=== PATIENT | male | born 2005 | race Caucasian/White ===

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

== ENCOUNTER 2025-07-26 16:05 | Inpatient (IN) | payer OTHER, SELFPAY ==
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
--- OUTSIDE RECORDS SUMMARY | 2025-07-26 15:48 | XMS_ITS | Encounter Summary ---
Author Organization [facility] Address [address] [place] [phone] Phone Care Team Providers Care Fitting Room Maintenance Mechanic Name Role Phone Neeta Hong DO Primary Care Provider [phone] Reason for Visit * Reason Comments ED Admission Encounter Details Date Type Department Care Team (Late st Contact Info) Description 07/26/2025 3:48 PM EST - Present Emergency [facility] - Patient Ping Social History Tobacco Use Types Packs/Day Years Used Date Smoking Tobacco: Never Smokeless Tobacco: Never Comments:tried JUUL once Alcohol Use Standard Drinks/Week Comments Never 0 (1 standard drink = 0.6 oz pur e alcohol) Hunger/Food Answer Date Recorded In the last 12 months, did y ou or your family ever eat less than you felt you should because there wasn't enough money for food? No 02/23/2025 Stable Housing Answer Date Recorded Are you worried that in the next 2 months you may not have stable housing? No 02/23/2025 Transportation Concerns Answer Date Rec orded In the last 12 months, have you or your family ever had to go without healthcare because you didn't have a way to get there? No 02/23/2025 Hazards in Home Answer Date Recorded Think about the place you li ve. Do you have problems with any of the following? Pests (mice or roaches), mold, no/not working smoke detectors, water leaks, no window guards. No 2024 Financing Utilities Answer Date Recorde d In the last 12 months, has t he electric, gas, oil, or water company threatened to shut off your services in your home? No 02/23/2025 Safety at Home Answer Date Recorded Are you or your family worried about feeling saf e in your home? No 02/23/2025 Outside Support Answer Date Recorded Do you feel that you need mo re support from other people or programs to help you care for yourself or your family? No 02/23/2025 Understanding Health Concerns Answer Da te Recorded Do you need help understandi ng your or your child's healthcare needs (diagnosis, medications, plan, etc.)? No 02/23/2025 Financing Health Concerns Answer Date R ecorded In the last 12 months, was t here a time when your child needed to see a doctor or get medications or supplies but could not because of cost? No 02/23/2025 Missing School or Work Answer Date Laci rded Did you or your child miss s chool or work because of a health problem that could have been avoided? No 02/23/2025 Child Education Answer Date Recorded Do you have concerns about y our/your child's learning or behavior in school, preschool, or daycare? No 02/23/2025 Sex and Gender Information Value Date Recorded Sex Assigned at Not on file Legal Sex Male 5:20 PM EDT Gender Identity Not on file Sexual Orientation Straight 02/04/2022 5: 45 PM EDT documented as of this encounter Plan of Treatment Not on file documented as of this encounter Visit Diagnoses Not on filedocumented in this encounter Care Teams Fitting Room Maintenance Mechanic Relationship Specialty Start Date End Date Neeta Hong DO [address] [facility] [place] [address] PCP - General 04/04/17 documented as of this encounter
[2025-07-26 16:12] VITALS: BP 148/102; PULSE 99; O2SAT 99; BMI 25.8
[2025-07-26 16:21] VITALS: BP 133/75; PULSE 101; RESP 18; TEMP 36.6; O2SAT 98
[2025-07-26 16:48] LABS: MANUAL DIFF FLAG NO
[2025-07-26 16:49] LABS: Hematocrit 48.4 % (42.0-52.0); Hemoglobin 16.4 g/dl (14.0-18.0); Imm Gran Abs Auto 0.06 X10*3/uL (0.00-0.03); Imm Gran Pct Auto 0.5 % (0.0-0.4); Lymphocytes Absolute Auto 1.2 X10*3/uL (1.2-4.9); Mean Corpuscular HGB Conc 33.9 g/dl (31.0-36.0); Mean Corpuscular Hemoglobin 27.9 pg (27.0-33.0); Mean Corpuscular Volume 82.5 fL (80.0-98.0); NRBC Abs Auto 0.000 X10*3/uL (0.0-0.012); NRBC Pct Auto 0.0 /100WBC (0.0-0.2); Platelet Count 291 X10*3/uL (160-400); Red Blood Count 5.87 X10*6/uL (4.60-5.80); White Blood Count 11.0 X10*3/uL (4.8-10.8)
[2025-07-26 16:51] LABS: Appearance Urine Turbid; Glucose Urine UA Negative (Negative); PH 7.0 (5.0-9.0); Specific Gravity - Urine 1.025 (1.005-1.025)
--- NOTE | 2025-07-26 17:00 | ED_ITS ---
HPI - Psych General Chief Complaint: Psychiatric Symptoms Stated Complaint: SI no plan hx of depression & self harm Time Seen by Provider: 07/26/25 16:09 Source: patient and police Mode of arrival: ambulatory Limitations: no limitations History of Present Illness ED Provider: DR. Win HPI Narrative: 19-year-old male brought in by EMS and the police under section 12 for further evaluation of attempt to self-harm by punching the wall with his right hand after had an argument with his significant other, patient made a suicidal statement during the argument I want to kill myself complaining of right hand pain, patient also Bang his head in the wall, no headache, no blurry vision, no neck pain. Patient feels suicidal with no plan, no visual or auditory hallucination. Related Data Home Medications ?Medication ?Instructions ?Recorded ?Confirmed albuterol sulfate 90 mcg/actuation 2 puff inhalation Q 4-6H 07/26/25 07/26/25 aerosol inhaler (Ventolin HFA) Allergies Allergy/AdvReac Type Severity Reaction Status Date / Time No Known Allergies Allergy Verified 07/26/25 16:15 Review of Systems 2 Review of Systems: All other systems are reviewed and are negative Constitutional: Reports as per HPI and Reports no additional constitutional complaints Eyes: Reports as per HPI and Reports no additional eye complaints Reports system reviewed and no additional complaints, except as documented Cardiovascular: Reports as per HPI and Reports no additional cardiovascular complaints Respiratory: Reports as per HPI and Reports no additional respiratory complaints Gastrointestinal: Reports as per HPI and Reports no additional gastrointestinal complaints Genitourinary: Reports no additional female genitourinary complaints Musculoskeletal: Reports no additional musculoskeletal complaints Skin/Breast: Reports system reviewed and no additional complaints, except as docu Psychiatric: Reports no additional psychiatric complaints Endocrine: Reports no additional endocrine complaints Hematologic/Lymphatic: Reports no additional hematologic/lymphatic complaints Allergic/Immunologic: Reports no additional allergic/immunologic complaints Reports system reviewed and no additional complaints, except as documented and Reports Abnormal speech present [facility] Social History Social History Advance Directives: No Advance Directives Information Provided: No Do you have a plan to hurt others: No Plan Physical Exam 2 Vital Signs: Vital Signs: Last Vital Signs Temp 97.8 F 07/26/25 16:21 Pulse 101 H 07/26/25 16:21 Resp 18 07/26/25 16:21 BP 133/75 07/26/25 16:21 Pulse Ox 98 07/26/25 16:21 O2 Del Method Room Air 07/26/25 16:21 BMI result Body Mass Index 25.8 Vital signs have been reviewed and appear to be correct. Blood pressure elevated. Heart rate normal. Respiratory rate normal. Temperature normal. Oxygen saturation normal. Appearance: Alert. Oriented X3. No acute distress. Head: Normal external exam. Normocephalic. Atraumatic. No Story signs noted. No raccoon eyes noted Eyes: PERRLA. EOMI. Conjunctiva and sclera normal. Eyelids normal. ENT: TM's Normal. Pharynx normal. Uvula midline. Moist mucous membranes. No trismus noted. No drooling noted. No muffled voice noted. Neck: Normal inspection. Neck supple. FROM. No adenopathy. Thyroid Normal. No meningeal signs. No neck mass noted. CVS: Normal heart rate and rhythm. Heart sound normal. No murmurs noted. Pulses normal throughout. Respiratory: No respiratory distress. Painless inspiration. Breath sounds normal. No wheezes/rales/rhonchi noted. Chest nontender. No accessory muscle usage noted or decreased air movement noted. Abdomen: Soft and nontender. Bowel sounds normal in all 4 quadrants. No distention noted. No organomegaly noted. No visible injury noted. Back: No CVA tenderness. Full range of motion noted. Skin: Skin warm and dry. Normal skin color. Normal skin turgor. No rashes/lesions/lacerations noted. Extremities: No lower extremity edema. Extremities exhibit normal range of motion. Extremities nontender. Neuro: Oriented X 3. Cranial nerve exam: II-XII are grossly intact No motor deficit. No sensory deficit. Reflexes normal. Course Reevaluation(s) Reevaluation #1: medically cleared, await for care team evaluation, continue with section 12, will start physician observation. DR. Win's 19;00: Care team input is appreciated patient will be inpatient bed search, continue with section 12 and physician observation. Time: 18:22 Medical Decision Making Differential Diagnosis Differential Diagnoses: The differential diagnosis associated with the presentation includes ( Medical clearance, acute psychosis, acute depression, SI) Admission/Observation Consideration of admission/observation: Escalation of care including admission/observation considered Lab Data MDM Lab Attestation statement: I reviewed the patient's lab results. 07/26/25 16:41 07/26/25 16:41 Labs: Lab Results 07/26/25 Range/Units 16:41 WBC 11.0 H (4.8-10.8) X10*3/uL RBC 5.87 H (4.60-5.80) X10*6/uL Hgb 16.4 (14.0-18.0) g/dl Hct 48.4 (42.0-52.0) % MCV 82.5 (80.0-98.0) fL MCH 27.9 (27.0-33.0) pg MCHC 33.9 (31.0-36.0) g/dl RDW 12.6 (11.0-16.0) % Plt Count 291 (160-400) X10*3/uL MPV 10.5 (9.4-12.4) fL Immature Gran % (Auto) 0.5 H (0.0-0.4) % Neut % (Auto) 80.6 H (45-73) % Lymph % (Auto) 11.2 L (20-40) % Faulkner % (Auto) 6.5 (2-11) % Eos % (Auto) 0.5 (0-4) % Baso % (Auto) 0.7 (0-2) % Lymph # (Auto) 1.2 (1.2-4.9) X10*3/uL [place]ner # (Auto) 0.7 (0.1-1.2) X10*3/uL Eos # (Auto) 0.1 (0.0-0.4) X10*3/uL Baso # (Auto) 0.1 (0.0-0.2) X10*3/uL Abs Immat Gran (auto) 0.06 H (0.00-0.03) X10*3/uL Absolute Neuts (auto) 8.9 H (2.0-8.3) x10*3/uL Absolute Nucleated RBC 0.000 (0.0-0.012) X10*3/uL Nucleated RBC % (auto) 0.0 (0.0-0.2) /100WBC Sodium 143 (135-145) mmol/L Potassium 4.1 (3.3-5.1) mmol/L Chloride 106 (96-108) mmol/L Carbon Dioxide 27 (22-29) mmol/L Anion Gap 14 (12-20) BUN 15 (9-16) mg/dL Creatinine 1.18 (0.5-1.4) mg/dL Estim Creat Clear Calc 103.9 Estimated GFR > 60 Random Glucose 97 (60-115) mg/dL Calcium 10.6 H (8.4-10.2) mg/dL Total Bilirubin 0.6 (0.0-1.0) mg/dL AST 21 (5-37) U/L ALT 23 (0-40) U/L Alkaline Phosphatase 85 (39-117) U/L Total Protein 8.0 (6.5-8.0) g/dL Albumin 5.5 H (3.5-5.0) g/dL Urine Color Yellow Urine Appearance Turbid Urine pH 7.0 (5.0-9.0) Ur Specific [place] 1.025 (1.005-1.025) Urine Protein Trace (Neg-Trace) mg/dL Urine Glucose (UA) Negative (Negative) mg/dL Urine Ketones 80 (Negative) mg/dL Urine Blood Negative (Negative) Urine Nitrite Negative (Negative) Ur Leukocyte Esterase Negative (Negative) Urine RBC 0-2 (0-2) /HPF Urine WBC 0-5 (0-5) /HPF Ur Squamous Epith Cells 0-2 (0-2) /HPF Urine Bacteria None Seen (None Seen) Hyaline Casts 6-10 (0-2) /LPF Urine Opiates Screen Not Detected (Not Detect) Ur Buprenorphine Scrn Not Detected (Not Detect) ng/mL Ur Oxycodone Screen Not Detected (Not Detect) ng/mL Urine Methadone Screen Not Detected (Not Detect) ng/mL Urine Fentanyl Screen Not Detected (Not Detect) Ur Barbiturates Screen Not Detected (Not Detect) Ur Phencyclidine Scrn Not Detected (Not Detect) Ur Amphetamines Screen Not Detected (Not Detect) U Benzodiazepines Scrn Not Detected (Not Detect) Urine Cocaine Screen Not Detected (Not Detect) U Marijuana (THC) Screen POSITIVE H (Not Detect) Ethyl Alcohol < 10 mg/dL Independent Interpretation I performed an independent interpretation of an: Plain X-Ray ( right hand;. No radiographic evidence of acute injury to the right hand. 2. Chronic healed fracture deformity of the 5th metacarpal.) Radiology Impression Discussion of test interpretation with radiology: I have reviewed the radiologist's reading. Discharge Plan Discharge Clinical Impression: Depression Prescriptions: No Action albuterol sulfate [Ventolin HFA] 90 mcg/actuation HFA aerosol inhaler 2 puff inhalation Q4-6H Interventions: [place]-Suicide Risk Severity Scale Last Done: 07/26/25 16:17 Print Language: Tajik
[2025-07-26 17:03] LABS: Alanine Aminotransferase 23 U/L (0-40); Albumin Level 5.5 g/dL (3.5-5.0); Alkaline Phosphatase 85 U/L (39-117); Anion Gap 14 (12-20); Aspartate Amino Transferase 21 U/L (5-37); Blood Urea Nitrogen 15 mg/dL (9-16); Calcium 10.6 mg/dL (8.4-10.2); Carbon Dioxide 27 mmol/L (22-29); Chloride 106 mmol/L (96-108); Creatinine Clr Calc Pharmacy 103.9; Estimated Glomerular Filt Rate > 60; Potassium 4.1 mmol/L (3.3-5.1); Sodium 143 mmol/L (135-145); Total Protein 8.0 g/dL (6.5-8.0)
[2025-07-26 17:04] LABS: Cannabinoid Screen Urine POSITIVE (Not Detect)
--- OUTSIDE RECORDS SUMMARY | 2025-07-26 17:24 | XMS_ITS | Encounter Summary ---
Author Organization [facility] Address [address] [place] [phone] Phone Care Team Providers Care Slip Bridge Operator Name Role Phone Neeta Hong DO Primary Care Provider [phone] Encounter Details Date Type Department Care Team (Late st Contact Info) Description 04/10/2017 Conversion Encounter [facility] [place] [address] [place] [address] Social History Tobacco Use Types Packs/Day Years Used Date Smoking Tobacco: Never Assessed Sex and Gender Information Value Date Recorded Sex Assigned at Not on file Legal Sex Male 5:20 PM EDT Gender Identity Not on file Sexual Orientation Straight 02/04/2022 5: 45 PM EDT documented as of this encounter Plan of Treatment Not on file documented as of this encounter Visit Diagnoses Not on filedocumented in this encounter Care Teams Slip Bridge Operator Relationship Specialty Start Date End Date Neeta Hong DO [address] [place] [address] PCP - General 04/04/17 documented as of this encounter
--- OUTSIDE RECORDS SUMMARY | 2025-07-26 17:24 | XMS_ITS | Clinical Summary ---
Author Organization [facility] Address [address] [place] [phone] Phone Care Team Providers Care Comber Operator Name Role Phone HalRamonasari SALAS Primary Care Provider [phone] Allergies Active Allergy Reactions Criticality Noted Date Comments Amoxicillin Cat Dander Medications Respiratory Therapy Supplies (NEBULIZER/TUBIN G/MOUTHPIECE) kitIndications:M oderate persistent asthma without complication Use as directed for delivery of asthma meds. 1 each 8 Active albuterol (2.5 MG/3ML) 0.083% nebulizer solutionIndicati ons:Moderate persistent asthma with acute exacerbation Take 3 mL (2.5 mg total) by nebulization every 4 (four) hours as needed for wheezing or shortness of breath. Dispense one package 75 mL 2 Active FLUoxetine 40 MG capsule 3 Active cloNIDine 0.1 MG tablet TAKE 1 TABLET BY MOUTH EVERY NIGHT AND ONE ADDITIONAL TABLET NEEDED FOR THE DAY FOR ANXIETY 3 Active QUEtiapine XR 400 MG 24 hr tablet 4 Active montelukast 10 MG tabletIndication s:Mild persistent asthma with acute exacerbation Take 1 tablet (10 mg total) by mouth nightly. 90 tablet 3 4 Active Spacer/Aero-Hold ing Chambers (OptiChamber Reshma) miscIndications: Mild persistent asthma without complication Use with inhaler 1 each 4 Active Ventolin HFA 108 (90 Base) MCG/ACT inhalerIndicatio ns:Mild persistent asthma with acute exacerbation Inhale 2 puffs every 4 (four) hours as needed for wheezing. for wheezing 1 Units 5 Active fluticasone 50 MCG/ACT nasal spray SPRAY 2 SPRAYS IN EACH NOSTRIL DAILY 5 Active predniSONE 10 MG tablet 5 Active Fluticasone-Salm eterol (Wixela Inhub) 250-50 MCG/ACT aerosol powderIndication s:Mild persistent asthma with acute exacerbation Inhale 1 puff 2 (two) times a day. Rinse mouth with water after use, do not swallow. 1 each 11 5 Active Active Problems Problem Noted Date Diagnosed Date Mood disorder 12/27/2019 Overview (01/26/2024): meds managed by Harvinder Navarro APRN Has therapist- HARVINDER Navarro Assessment & Plan (02/23/2025 11:25 AM EDT): Meds and counseling managed by Harvinder Fernandes for routine screening labs Assessment & Plan (01/26/2024 11:34 AM EDT): Meds and counseling managed by Harvinder Navarro Assessment & Plan (01/15/2023 10:12 AM EDT): Meds managed by ZA Pete dose recently increased Psych med provider would like him to have psych testing-mom is trying to get on a list at [facility]; uncertain if [facility] will take him as a patient-I am referring him to GI so perhaps this will help Assessment & Plan (12/30/2022 9:15 AM EDT): meds managed by Harvinder Navarro On Prozac Assessment & Plan (02/04/2022 5:46 PM EDT): Seeing psych for meds Just started sertraline On buspar too Assessment & Plan (01/30/2021 9:31 AM EDT): Missed quite a few days of school sec to anxiety Seeing Harvinder Navarro for meds On celexa now Takes clonidine prn Assessment & Plan (11/28/2020 9:18 AM EDT): I agree w/ teen and mom that his physical signs and symptoms are most likely related to his anxiety- which worsened recently when he abruptly DCed his fluoxetine for a week(he did this because he was feeling better and thought he didn't need med anymore) Stressed not to DC meds w/o discussing w/ Rx'ing provider first and jovan SSRIs should not be abruptly DCed He was having good response to fluoxetine so hopefully this will cont now that he is back on med again He has med FU w/ Jodi Khan soon LUIZ screen 15- His anxiety is quite significant so I encouraged him to engage in regular therapy sessions w/ therapist @ [facility]- instead of just a check-in Assessment & Plan (12/28/2019 2:29 PM EDT): Pos BH screens today though no concerns per pt We discussed how the pandemic has affected his life- no more sports, not able to visit dad who lives in [place], unsure of what the summer will bring Has reg therapist but since COVID pandemic lockdown, only getting a phone check- in once a month Encouraged to get back in touch with therapist as I do not think a brief phone check-in is enough to support pt's needs He does not like change- does not want to see another therapist and is somewhat negative about seeing his current therapist more often Mom will let me know if she needs more help Spermatocele 05/28/2019 Overview (05/28/2019): On US 2019 Or epidyd head cyst No intervention unless recurr pain Assessment & Plan (12/30/2022 10:25 AM EDT): No symptoms Assessment & Plan (01/30/2021 9:33 AM EDT): asymptomatic Assessment & Plan (12/28/2019 2:30 PM EDT): No current issues Assessment & Plan (06/02/2019 11:45 AM EDT): We discussed again today- not having any pain; was thinking he wanted it removed; we talks about risks v. Benefits of surgery in this case; because he is having no pain, will monitor for now; I am happy to send him to pedi surg in future if this changes. Moderate persistent asthma without complication 12/22/2015 Overview (12/30/2022): wixela 250: 1p twice a day in singulair restart Was off advair/wixela 250: 1p BID and off singulair since [address] 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 Explained why this is dangerous when not also on steroids. Decadron here today To start pred 50 mg 1x daily x 3 tomorrow afternoon To restart Wixela and singulair (unclear if this will happen) Will refer back to Dr Coleman and mom's request. To follow up prn persistent or recurrent symptoms No wheezing appreciated today (pt says he took albuterol just prior to being seen) O2 sat 96% here. Assessment & Plan (05/21/2023 1:15 PM EDT): Post flare and 5d pred course- much better Discussed ?switch to SMART therapy/symbicort single MDI protocol for maint and rescue He does not want to switch now- wants to stay w/ his current wixela and singulair Due for PE in Assessment & Plan (05/16/2023 10:38 AM EDT): Here for routine asthma check but has acute asthma flare today Using albuterol freq for the past week to 10d Pred course 50mg daily x 5d- recheck next week to see if he will need a taper Again reviewed compliance w/ wixela-twice a day dosing not once a day dosing Also he has not been taking Singulair so we reviewed this as well Consider switch to Symbicort protocol at some point Assessment & Plan (12/30/2022 10:26 AM EDT): Compliant w/ wixela and singulair Assessment & Plan (09/23/2022 9:36 AM EST): S/p asthma flare req pred course 2w ago in setting of RSV All better now freq asthma flares this winter so will restart singulair Cont wixela 250: 1p twice a day Recheck @ PE due in December If he has another flare req pred course- will refer back to Pulm([facility] this time) Assessment & Plan (07/26/2022 7:07 PM EST): Teen came alone today- called mom to go over care Lungs are clear and no fever, is well-appearing Pos RSV test a week ago On cefdinir day 03/03 for AOM- looks better today S/p pred 5d course He feels 70% better- I think still recovering from RSV Do not think further testing or extended pred course needed Stressed cont his daily wixela MDI Advised cool mist humidifier in bedroom and make sure to keep hydrated before bedtime Assessment & Plan (02/04/2022 4:01 PM EDT): Compliant w/ wixela Assessment & Plan (11/01/2021 10:02 AM EST): Reviewed ED note Unfortunately- they did not get the instructions for pred taper and teen skipped the 5d burst and went right to the taper dosinmg, 40mg, 30mg, 20mg He is currently on 20mg pred daily- advised this taper: 20mg daily for 2d 10mg daily for 2d Re-start wixela 250/1p twice a day Long discussion about compliance Again offered HAP through PPOC- teen refused Has PE coming up in JUAN PABLO Consider return to Dr. Coleman and/or re-starting singulair depending on how he does Assessment & Plan (07/23/2021 5:38 PM EST): ACT 20- good RFed prn proair- should last him 3mo- if not, would be concerned asthma is not under good control FU @ PE in JAN22 Assessment & Plan (01/29/2021 11:37 AM EDT): Not taking wixela for a year now Using last albuterol infreq Assessment & Plan (12/28/2019 2:29 PM EDT): Doing better with daily ICS Still declines PPOC HAP Encouraged to keep up the good work Assessment & Plan (09/13/2019 5:53 PM EST): Again we had a long discussion about his Advair(Wixela) and why he needs it Discussed ways to remember taking it Wanted to refer him to PPOC HAP- but he is refusing and promised to re-start his daily Advair Has PE in 3mo Assessment & Plan (12/01/2018 8:51 AM EDT): he self DCed advair and singulair sometime in [id number]. Mom reports has issues with adherence. Occasionally uses proair. Had no problems with sports and had a few colds and did not need much albuterol rescue. Assessment & Plan (11/27/2017 7:16 AM EDT): Dr. Coleman recently inc his advair to the 250 and added singulair; he would be a good match for the home asthma program- d/w mom- she declined for now but will consider it Resolved Problems Problem Noted Date Diagnosed Date Resolved Date Hx of tonsillectomy 01/26/2024 01/26/20 24 Abnormal thyroid blood test 05/16/2023 02/23/2025 Overview (08/05/2023): Had low TSH, recheck better Neg TSI, TPO Mom has hypothy- req endo consult 2022- Endo felt repeat TFTs were normal; no FU needed Assessment & Plan (05/16/2023 10:26 AM EDT): Had low TSH, recheck better Neg TSI, TPO Mom has hypothy- req endo referral Nausea and vomiting 01/15/2023 02/24/20 25 Overview (01/26/2024): Seeing [facility]-plan JUL 17: Suspect anxiety related IBS Fecal calprotectin Trial famotidine Follow-up in 3 months-consider EGD if not better Assessment & Plan (01/26/2024 11:34 AM EDT): Reviewed GI visit last Fall- he is better and does not feel the need to return to see GI Trial pepcid did help Assessment & Plan (01/15/2023 10:11 AM EDT): Recurrent nausea vomiting along with some diarrhea Suspect multifactorial etiology-Yana is insightful in telling me that anxiety triggers the symptoms Screening labs are reasonable at this point We will refer to GI given mom's history of colon cancer Tinea versicolor 03/22/2021 02/04/2022 Acne vulgaris 03/22/2021 01/26/2024 Overview (11/20/2022): 90d doxy course Turcios oxyl wash rec Assessment & Plan (12/30/2022 10:25 AM EDT): 4w into 12w doxy course If no better @ end of 12w- will refer to Derm Assessment & Plan (11/20/2022 5:29 PM EDT): 90d doxy course- vigilant sunscreen use reviewed Turcios oxyl wash rec Post concussive syndrome 07/19/201811/2019 Overview (07/18/2019): Images from the original note were not included. - re-consulted Sports Med: Fall 2018: Saw Dr. Aguillon. Cleared back to sports in the fall. Common wart 03/17/2018 12/27/2019 Overview (03/17/2018): Saw [facility] Anxiety 12/22/2015 11/27/2017 Gastroesophageal reflux dise ase without esophagitis 12/03/2006 11/27/2017 Umbilical hernia 12/03/2006 11/27/2017 Encounters Date Type Department Care Team Description 07/26/2025 3:48 PM EST - Present Emergency [facility] - Patient Ping 05/16/2025 Telephone [facility] - [address] [address] Verenice Montez flu vaccine from Last 3 Months Immunizations Immunization Administration Dates Next Due COVID-19 marco antonio Nicholson-theresa rowan, 12+ years 02/04/2022 DTaP 03/23/2010,05/22/2007 DTaP / Hep B / IPV 06/11/2006,03/26/2006, 006 HPV Vaccine 9 Valent 06/03/2018,11/26/2017 Hep A, ped/adol 05/22/2007,11/20/2006 Hep B, ped/adol 2005 Hib (HbOC) 05/22/2007 Hib (PRP-T) 06/11/2006,03/26/2006,01/16/2006 IPV 03/23/2010 Influenza Split 04/22/2012,06/10/2011 Influenza, injectable, quadr ivalent, preservative free 07/23/2021,06/09/2020 Influenza, injectable, trivalent 10/15/2006,01/04/2007 MMR 03/23/2010 MMRV 11/20/2006 Meningococcal Conj (Menactra) MCV4P 02/04/2022,0 11/26/2017 Pneumococcal Conjugate 03/05/2007,2005,03/26/2006,01/16 Pneumococcal Polysaccharide 02/23/2025 Tdap 11/26/2017 Varicella 05/22/2007 Family History Medical History Relation Name Comments Anxiety disorder Father Asthma Father Depression Father Asthma Mother Misti Colon cancer Mother Misti Vision loss Sister shanthi No Known Problems Step Sister 1 No Known Problems Step Sister 2 No Known Problems Step Sister 3 Relation Name Status Comments Father Alive Father: Asthma Maternal Grandfather Alive Materna l uncle: GERD Maternal Grandmother Alive Materna l grandmother: GERD Mother Misti Alive Mother: Asthma, Cancer, colon Paternal Grandfather Alive Paternal Grandmother Alive Paterna l grandmother: Anxiety Sister shanthi Alive vision impareme nt Step Sister 1 Alive Step Sister 2 Alive Step Sister 3 Alive Social History Tobacco Use Types Packs/Day Years Used Date Smoking Tobacco: Never Smokeless Tobacco: Never Tobacco Cessation:Counseling Given: Yes Comments:tried JUUL once Alcohol Use Standard Drinks/Week [...] Orientation Straight 02/04/2022 5: 45 PM EDT Last Filed Vital Signs Vital Sign Reading Time Taken Comments Blood Pressure 108/70 02/23/2025 8:46 AM EDT Pulse 84 02/23/2025 8:46 AM EDT Temperature 36.2 C (97.2 F) 02/23/2025 8:46 AM EDT Respiratory Rate 20 05/16/2023 8:40 AM EDT Oxygen Saturation 96% 07/06/2024 3:29 PM EST Inhaled Oxygen Concentration - - Weight 88.9 kg (196 lb) 02/23/2025 8:46 AM EDT Height 175.9 cm (5' 9.25 ) 02/23/2025 8:46 AM ED T Body Mass Index 28.74 02/23/2025 8:46 AM EDT Plan of Treatment Health Maintenance Due Date Last Done Comments Men B Vaccine (1 of 2 - Standard) 2021 LDL-C/Cholesterol 05/16/2023 Glucose/HbA1C 01/16/2024 01/15/2023 Influenza Vaccines (#1) 2025 07/23/20 21, 06/09/2020, 04/22/2012, Additional history exists COVID-19 Vaccine (3 - 2024-2 6 season) 2025 02/04/2022, 01/15/2022 DTaP,Tdap,and Td Vaccines (7 - Td or Tdap) 11/27/2027 11/26/2017, 03/23/2010, 05/22/2007, Additional history exists Pneumococcal Vaccine (2 of 2 - PCV20 or PCV21) 11/17/2055 02/23/2025, 03/05/2007, 06/11/2006, Additional history exists Hepatitis B Vaccines Completed 06/11/2006, 03/26/2006, 01/16/2006, Additional history exists HIB Vaccines Completed 05/22/2007, 05/25, 03/26/2006, Additional history exists Hepatitis A Vaccines Completed 05/22/2007, 11/21/19 07 Varicella Vaccines Completed 05/22/2007, 11/20/2006 IPV Vaccines Completed 03/23/2010, 05/25, 03/26/2006, Additional history exists MMR Vaccines Completed 03/23/2010, 11/20/2006 HPV Vaccines Completed 06/03/2018, 11/26/2017 Meningococcal Vaccine Completed 02/04/2022, 018 Procedures * The patient is currently admitted. The information in this section might not be complete until the patient is discharged.Due to [place] 9Flava law, this organization might not be sharing sensitive test results. Procedure Name Priority Date/Time Associated Diagnosis Comments COMPREHENSIVE METABOLIC PANEL Routine 01/15/2023 10:05 AM EDT Nausea and vomiting, unspecified vomiting type from Last 3 Months or Most Recently Relevant to Health Maintenance Results * Due to [place] 9Flava law, this organization might not be sharing sensitive test results. * (ABNORMAL) Comprehensive Metabolic Panel (01/15/2023 10:05 AM EDT) Glucose 99 (70-99) MG/DL [facility] Urea Nitrogen 15 (5-18) MG/DL [facility] Creatinine 1.0 (0.7-1.2) MG/DL [facility] Sodium 138 (133-145) MMOL/L [facility] Potassium 4.7 (3.6-5.2) MMOL/L [facility] Chloride 102 (98-107) MMOL/L [facility] HCO3, Arterial 28 (22-29) MMOL/L [facility] Anion Gap 8 (4-17) [facility] Albumin 5.0(H) (3.2-4.5) GM/DL [facility] Calcium 10.0 (8.6-10.5 ) MG/DL [facility] Bilirubin, Total 0.6 (0-1.2) MG/DL [facility] Total Protein 7.2 (6.2-8.2) GM/DL [facility] A/G Ratio 2.3 [facility] AST (SGOT) 13 (0-40) U/L [facility] Alkaline Phosphatase 84 (0-390) U/L [facility] ALT (SGPT) 10 (0-41) U/L [facility] eGFR Non- Not reported if <18 yrs ML/MIN/1. 73 M2 [facility] Comment: Testing performed or reported by [facility], a Service of [facility], [address] [place] [id number] Ubaldo Leiva MD, It Project Manager [facility]# [id number] Blood 01/15/2023 10:0 5 AM EDT 01/15/2023 10:13 AM EDT us Neeta Hong DO LAB BLOOD ORDERABLES Final Resul t [facility] from Last 3 Months or Most Recently Relevant to Health Maintenance Insurance [facility] NON PCC [facility] [place] [id number] Care Teams Comber Operator Relationship Specialty Start Date End Date Neeta Hong DO [address] [facility] [address] PCP - General 04/04/17
--- OUTSIDE RECORDS SUMMARY | 2025-07-26 17:24 | XMS_ITS | Encounter Summary ---
Author Organization [facility] Address [address] [place] [address] Phone Care Team Providers Care Forest Fire Prevention Manager Name Role Phone Neeta Hong DO Primary Care Provider [phone] Reason for Visit * Reason Onset Date Comments Med Refill 03/21/2025 Encounter Details Date Type Department Care Team (Late st Contact Info) Description 03/21/2025 Refill [facility] [place] [address] [place] [address] Neeta Hong DO [address] [place] [address] Mild persistent asthma with acute exacerbation Social History Tobacco Use Types Packs/Day Years [...] PM EDT documented as of this encounter Miscellaneous Notes * Telephone Encounter - Neeta Hong DO - 03/21/2025 5:18 PM EDT OK I agree w/ plan * Telephone Encounter - Haley Jason LPN - 03/21/2025 11:26 AM EDT Portal request refill ventolin inhaler. Hx fill for this med in 2024 is as follows. 09/03/24, 10/09/24, 01/26/25 and 02/04/25. I advised the pt to contact office if he is out as f/u with PCP may be needed. EH documented in this encounter Plan of Treatment Not on file documented as of this encounter Visit Diagnoses Diagnosis Mild persistent asthma with acute exacerbation documented in this encounter Care Teams Forest Fire Prevention Manager Relationship Specialty Start Date End Date Neeta Hong DO [address] [facility] [place] [address] PCP - General 04/04/17 documented as of this encounter
--- OUTSIDE RECORDS SUMMARY | 2025-07-26 17:24 | XMS_ITS | Clinical Summary ---
Author Organization [facility] Address [address] [address] Phone Care Team Providers Care Canal Equipment Maintenance Supervisor Name Role Phone Neeta Hong DO Primary Care Provider [phone] Allergies Active Allergy Reactions Criticality Noted Date Comments Amoxicillin Cat Hair Standardized Allergenic Extract Medications No known medications Active Problems No known active problems Social History Tobacco Use Types Packs/Day Years Used Date Smoking Tobacco: Never Smokeless Tobacco: Never Alcohol Use Standard Drinks/Week Comments No 0 (1 standard drink = 0.6 oz pur e alcohol) Education Answer Date Recorded Are you interested in more education? Not on franchesca e 12/20/2022 Are you concerned about learning? Not on file 12/20/2022 No 12/20/2022 No 12/20/2022 Digital Access Answer Date Recorded No 01/14/2023 No 01/14/2023 No 01/14/2023 Reliable internet access at home? Not on file 01/14/2023 Device with a working camera? Not on file Sex and Gender Information Value Date Recorded Sex Assigned at Not on file Legal Sex Male 4:46 PM EDT Gender Identity Not on file Sexual Orientation Not on file Last Filed Vital Signs Vital Sign Reading Time Taken Comments Blood Pressure - - Pulse - - Temperature - - Respiratory Rate - - Oxygen Saturation - - Inhaled Oxygen Concentration - - Weight 54.4 kg (120 lb) 04/13/2018 8:59 AM EDT Height 157.5 cm (5' 2 ) 04/13/2018 8:59 AM EDT Body Mass Index 21.95 04/13/2018 8:59 AM EDT Body Mass Index Percentile 88.05% 04/13/2018 8:5 9 AM EDT Growth Chart: CDC (Boys, 2-2 0 Years) Plan of Treatment Health Maintenance Due Date Last Done Comments BMI ASSESSMENT 2008 DEVELOPMENTAL/BEHAVIORAL SCREENING (PHQ, PSC, or SWYC) 2008 DEPRESSION SCREENING 2017 SMOKING Hx and SMOKELESS TOBACCO SCREENING 2018 MENINGOCOCCAL VACCINES (B) (1 of 2 - Standard) 2021 ADOLESCENT UNIVERSAL LIPID SCREENING 2022 HEPATITIS C SCREENING 11/17/2023 HIV ONE-TIME SCREENING (18-65 YEARS) 11/17/2023 INFLUENZA VACCINE (#1) 2025 , 06/09/2020, 04/22/2012, Additional history exists COVID-19 VACCINE (3 - 2024- season) 2025 02/04/2022, 01/15/2022 COMBINED DTaP,Tdap,Td (7 - Td or Tdap) 11/27/2027 11/26/2017, 03/23/2010, 05/22/2007, Additional history exists HEPATITIS B VACCINES Completed 06/11/2006, 03/26/2006, 01/16/2006, Additional history exists PNEUMOCOCCAL VACCINES (0-49 years) Aged Out 03/05/2007, 06/11/2006, 03/26/2006, Additional history exists No longer eligible based on patient's age to complete this topic HEPATITIS A VACCINES Completed 05/22/2007, 11/21/19 07 HIB VACCINES Completed 05/22/2007, 05/25, 03/26/2006, Additional history exists VARICELLA VACCINES Completed 05/22/2007, 11/20/2006 MMR VACCINES Completed 03/23/2010, 11/20/2006 HPV VACCINES Completed 06/03/2018, 11/26/2017 MENINGOCOCCAL VACCINES (ACWY) Completed 02/04/2022, 11/26/2017 Medical Devices Not on file Insurance [employer] PPO AETNA PPO AETNA PPO AETNA PPO AETNA PPO AETNA PPO AETNA PPO AETNA PPO AETNA PPO AETNA PPO AETNA PPO AETNA PPO AETNA PPO AETNA PPO AETNA PPO AETNA PPO AETNA PPO AET[employer] PPO Care Teams Canal Equipment Maintenance Supervisor Relationship Specialty Start Date End Date Neeta Hong DO [address] [facility] [place] [address] PCP - General Pediatrics 04/13/18 Additional Source Comments The information contained in this document represents components of the legal health record. It is not the complete legal health record.[facility]
--- OUTSIDE RECORDS SUMMARY | 2025-07-26 17:25 | XMS_ITS | Encounter Summary ---
Author Organization [facility] Address [address] [place] [address] Phone Care Team Providers Care Supervisor Toy Parts Former Name Role Phone Neeta Hong DO Primary Care Provider [phone] Reason for Visit * Reason Comments Med Refill Encounter Details Date Type Department Care Team ([facility] st Contact Info) Description 02/26/2021 Refill [facility] [address] [place], [place] [id number] Neeta Hong DO [address] [place] [address] Mild persistent asthma without complication Social History Tobacco Use Types Packs/Day Years [...] there wasn't enough money for food? No 01/29/2021 Stable Housing Answer Date Recorded Are you worried that in the next 2 months you may not have stable housing? No 01/29/2021 Transportation Concerns Answer Date Rec orded In the last 12 months, have you or your family ever had to go without healthcare because you didn't have a way to get there? No 01/29/2021 Hazards in Home Answer Date Recorded Think about the place you li ve. Do you have problems with any of the following? Pests (mice or roaches), mold, no/not working smoke detectors, water leaks, no window guards. No 2020 Financing Utilities Answer Date Recorde d In the last 12 months, has t he electric, gas, oil, or water company threatened to shut off your services in your home? No 01/29/2021 Safety at Home Answer Date Recorded Are you or your family worried about feeling saf e in your home? No 01/29/2021 Outside Support Answer Date Recorded Do you feel that you need mo re support from other people or programs to help you care for yourself or your family? No 01/29/2021 Understanding Health Concerns Answer Da te Recorded Do you need help understandi ng your or your child's healthcare needs (diagnosis, medications, plan, etc.)? No 01/29/2021 Financing Health Concerns Answer Date R ecorded In the last 12 months, was t here a time when your child needed to see a doctor or get medications or supplies but could not because of cost? No 01/29/2021 Missing School or Work Answer Date Laci rded Did you or your child miss s chool or work because of a health problem that could have been avoided? Yes 01/29/2021 Sex and Gender Information Value Date Recorded Sex Assigned at Not on file Legal Sex Male 5:20 PM EDT Gender Identity Not on file Sexual Orientation Straight 02/04/2022 5: 45 PM EDT documented as of this encounter Miscellaneous Notes * Telephone Encounter - Neeta Hong DO - 02/26/2021 7:07 PM EDT [facility] refused to allow E-rx or any Rx w[facility] the [facility] [place] attached to the encounter. I [facility]. * Telephone Encounter - Christi Davenport [place] - 02/26/2021 11:11 AM EDT Mom calling stating pt needs the albuterol refill. Mom states he has had a head cold. Pt is in [place] and needs it. Mom aware it was filled less than a month ago and pt is already out. Mom advised if he used the entire inhaler pt needs to seek care in [place]. When advised this mom became argumentative that we are going to withhold the inhaler for her child and he will need to go with out if he has an attach. Mom advised it will be sent to PCP for review but again if used an entire inhaler in less that one month he should really be seen to Make sure he is ok. [facility]. Mom sent to the front of house manager to book an asthma check but it is not until 03/23 documented in this encounter Plan of Treatment Not on file documented as of this encounter Visit Diagnoses Diagnosis Mild persistent asthma without complication documented in this encounter Care Teams Supervisor Toy Parts Former Relationship Specialty Start Date End Date Neeta Hong DO [address] [facility] [place] [address] PCP - General 04/04/17 documented as of this encounter
--- OUTSIDE RECORDS SUMMARY | 2025-07-26 17:25 | XMS_ITS | Encounter Summary ---
Author Organization [facility] Address [address] [place] [address] Phone Care Team Providers Care Electrical Controls Designer Name Role Phone Neeta Hong DO Primary Care Provider [phone] Reason for Visit * Reason Comments Med Refill Encounter Details Date Type Department Care Team (Late st Contact Info) Description 11/28/2017 Refill [facility] [place] [address] [place] [address] Gene Barber MD [address] [place] [address] Mild intermittent asthma without complication Social History Tobacco Use Types Packs/Day Years Used Date Smoking Tobacco: Never Smokeless Tobacco: Never Sex and Gender Information Value Date Recorded Sex Assigned at Not on file Legal Sex Male 5:20 PM EDT Gender Identity Not on file Sexual Orientation Straight 02/04/2022 5: 45 PM EDT documented as of this encounter Miscellaneous Notes * Telephone Encounter - Haley Jason LPN - 11/28/2017 3:44 PM EDT Pharm fax refill request proair. Vm left asking mom to call as this was last filled 10/28/17. EH documented in this encounter Plan of Treatment Not on file documented as of this encounter Visit Diagnoses Diagnosis Mild intermittent asthma without complication documented in this encounter Care Teams Electrical Controls Designer Relationship Specialty Start Date End Date Neeta Hong DO [address] [place] [address] PCP - General 04/04/17 documented as of this encounter
--- OUTSIDE RECORDS SUMMARY | 2025-07-26 17:25 | XMS_ITS | Encounter Summary ---
Author Organization [facility] Address [address] [place] [address] Phone Care Team Providers Care Fringing Machine Operator Name Role Phone Neeta Hong DO Primary Care Provider [phone] Encounter Details Date Type Department Care Team (Late st Contact Info) Description 09/26/2010 Documentation [facility] [address] [place] [address] Family Medicine, Physician [address], [place] [id number] Social History Tobacco Use Types Packs/Day Years [...] on filedocumented in this encounter Care Teams Fringing Machine Operator Relationship Specialty Start Date End Date Neeta Hong DO [address] [place] [address] PCP - General 04/04/17 documented as of this encounter
--- OUTSIDE RECORDS SUMMARY | 2025-07-26 17:25 | XMS_ITS | Encounter Summary ---
Author Organization [facility] Address [address] [place] [phone] Phone Care Team Providers Care Coal Cager Name Role Phone Neeta Hong DO Primary Care Provider [phone] Reason for Visit * Reason Comments Med Refill Encounter Details Date Type Department Care Team (Late st Contact Info) Description 09/21/2020 Refill [facility] [place] [address] [place] [address] Anthony Campbell MD [address] [place] [address] Mood disorder Social History Tobacco Use Types Packs/Day Years [...] there wasn't enough money for food? No 12/27/2019 Stable Housing Answer Date Recorded Are you worried that in the next 2 months you may not have stable housing? No 12/27/2019 Transportation Concerns Answer Date Rec orded In the last 12 months, have you or your family ever had to go without healthcare because you didn't have a way to get there? No 12/27/2019 Hazards in Home Answer Date Recorded Think about the place you li ve. Do you have problems with any of the following? Pests (mice or roaches), mold, no/not working smoke detectors, water leaks, no window guards. No 2019 Financing Utilities Answer Date Recorde d In the last 12 months, has t he electric, gas, oil, or water company threatened to shut off your services in your home? No 12/27/2019 Safety at Home Answer Date Recorded Are you or your family worried about feeling saf e in your home? No 12/27/2019 Outside Support Answer Date Recorded Do you feel that you need mo re support from other people or programs to help you care for yourself or your family? No 12/27/2019 Understanding Health Concerns Answer Da te Recorded Do you need help understandi ng your or your child's healthcare needs (diagnosis, medications, plan, etc.)? No 12/27/2019 Financing Health Concerns Answer Date R ecorded In the last 12 months, was t here a time when your child needed to see a doctor or get medications or supplies but could not because of cost? No 12/27/2019 Missing School or Work Answer Date Laci rded Did you or your child miss s chool or work because of a health problem that could have been avoided? No 12/27/2019 Sex and Gender Information Value Date Recorded Sex Assigned at Not on file Legal Sex Male 5:20 PM EDT Gender Identity Not on file Sexual Orientation Straight 02/04/2022 5: 45 PM EDT documented as of this encounter Plan of Treatment Not on file documented as of this encounter Visit Diagnoses Diagnosis Mood disorder Unspecified episodic mood disorder documented in this encounter Care Teams Coal Cager Relationship Specialty Start Date End Date Neeta Hong DO [address] [facility] [place] [address] PCP - General 04/04/17 documented as of this encounter
--- OUTSIDE RECORDS SUMMARY | 2025-07-26 17:25 | XMS_ITS | Encounter Summary ---
Author Organization [facility] Address [address] [place] [address] Phone Care Team Providers Care Director Of Manufacturing Name Role Phone Neeta Hong DO Primary Care Provider [phone] Reason for Visit * Reason Comments Med Refill Encounter Details Date Type Department Care Team (Late st Contact Info) Description 09/01/2022 Refill [facility] [place] [address] [place] [address] Neeta Hong DO [address] [place] [address] Mild persistent asthma without complication Social History [...] there wasn't enough money for food? No 02/04/2022 Stable Housing Answer Date Recorded Are you worried that in the next 2 months you may not have stable housing? No 02/04/2022 Transportation Concerns Answer Date Rec orded In the last 12 months, have you or your family ever had to go without healthcare because you didn't have a way to get there? No 02/04/2022 Hazards in Home Answer Date Recorded Think about the place you li ve. Do you have problems with any of the following? Pests (mice or roaches), mold, no/not working smoke detectors, water leaks, no window guards. No 2021 Financing Utilities Answer Date Recorde d In the last 12 months, has t he electric, gas, oil, or water company threatened to shut off your services in your home? No 02/04/2022 Safety at Home Answer Date Recorded Are you or your family worried about feeling saf e in your home? No 02/04/2022 Outside Support Answer Date Recorded Do you feel that you need mo re support from other people or programs to help you care for yourself or your family? No 02/04/2022 Understanding Health Concerns Answer Da te Recorded Do you need help understandi ng your or your child's healthcare needs (diagnosis, medications, plan, etc.)? No 02/04/2022 Financing Health Concerns Answer Date R ecorded In the last 12 months, was t here a time when your child needed to see a doctor or get medications or supplies but could not because of cost? No 02/04/2022 Missing School or Work Answer Date Laci rded Did you or your child miss s chool or work because of a health problem that could have been avoided? No 02/04/2022 Sex and Gender Information Value Date Recorded Sex Assigned at Not on file Legal Sex Male 5:20 PM EDT Gender Identity Not on file Sexual Orientation Straight 02/04/2022 5: 45 PM EDT documented as of this encounter Miscellaneous Notes * Telephone Encounter - Joaquina Eaton LPN - 09/02/2022 12:06 PM EST Mom calling regarding script. States pt does need a refill and has been using inhaler frequently. Pt is at school currently unable to give accurate assessment. Discussed worrisome s/s and when to go to ER. Booked asthma follow up for 09/11/22 Mom will call tomorrow for same day sick appt or call UC today for more acute s/s. * Telephone Encounter - Romaine Underwood LPN - 09/02/2022 10:30 AM EST Pharm requesting refill of Ventolin inhaler. Last PE 02/04/22 Call placed regarding refill request, script sent on 08/09. Left message to call office regarding refill request documented in this encounter Plan of Treatment Not on file documented as of this encounter Visit Diagnoses Diagnosis Mild persistent asthma without complication documented in this encounter Care Teams Director Of Manufacturing Relationship Specialty Start Date End Date Neeta Hong DO [address] [facility] [place] [address] PCP - General 04/04/17 documented as of this encounter
[2025-07-26 19:39] VITALS: BP 109/60; PULSE 97; RESP 18; TEMP 37.1; O2SAT 99
--- NOTE | 2025-07-26 19:54 | PC.NURSE ---
Spoke with Dr. Win on the phone regarding patient's request for inhaler. Order being entered. Will medicate upon receipt.
[2025-07-26] MEDS: Albuterol Sulfate 90 MCG 8 GM INHALER 2 PUFF INHALE (20:13)
--- NOTE | 2025-07-26 23:30 | PC.NURSE ---
[place]ook over care from RN Chica, no sign of distress, pt sleeping at this time.
--- NOTE | 2025-07-27 | ECG_ITS ---
Test Reason : check prlong qt Blood Pressure : */* mmHG Vent. Rate : 84 BPM Atrial Rate : 84 BPM P-R Int : 146 ms QRS Dur : 98 ms QT Int : 364 ms P-R-T Axes : 55 25 37 degrees QTcB Int : 430 ms Normal sinus rhythm Normal ECG No previous ECGs available Referred By: Vito Lee Electronically Signed By: SUKHDEEP VARMA
--- NOTE | 2025-07-27 02:19 | PC.NURSE ---
Out of bed, given inhaler.
[2025-07-27 06:29] VITALS: BP 127/79; PULSE 92; RESP 18; TEMP 36.6; O2SAT 98
--- NOTE | 2025-07-27 06:33 | PC.NURSE ---
Pt sob, rescue inhaler given, pt still wheezing, provider into assess pt, breathing treatment, steroids. Notified CC Judy , awaiting bed assignment.
--- NOTE | 2025-07-27 06:45 | PC.NURSE ---
Addendum entered by Janie Olivera RN 07/27/25 07:08: pt did not want to finish breathing tx. lung sounds cta and reporting breathing improved. primary rn Delia kline for pt to return to pod. Original Note: pt ambulatory from pod to ed17 henry. pt medicated per oct. RT at bedside now. resp even and unlabored skin wpd. sitter at bedside.
[2025-07-27] MEDS: Albuterol Sulfate 5 MG, Albuterol/Iprat 2.5/0.5MG 3 ML 3 ML INHALE (06:55)
[2025-07-27 07:01] VITALS: PULSE 82; RESP 16; O2SAT 97
--- NOTE | 2025-07-27 09:50 | PC.NURSE ---
Assumed care of patient at 0700. Patient brought back to POD from the main ED after receiving breathing treatment and Prednisone. Patient currently sleeping. Safety measures in place.
--- NOTE | 2025-07-27 11:12 | PHA.MEDREC ---
Pharmacy Consult ? Medication Reconciliation Pharmacy has reviewed the medication reconciliation completed by nursing.
[2025-07-27 14:57] VITALS: BP 127/63; PULSE 99; RESP 18; TEMP 36.8; O2SAT 96
[2025-07-27 16:51] VITALS: BP 160/70; PULSE 108; RESP 18; TEMP 36.6; O2SAT 97
[2025-07-27] MEDS: Albuterol Sulfate 90 MCG 8 GM INHALER 2 PUFF INHALE ×2 (17:41→20:03)
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
--- NOTE | 2025-07-27 18:33 | PC.NURSE ---
07/27/25 pt refused flu vaccine
[2025-07-27 20:00] VITALS: BP 123/68; PULSE 105; RESP 16; TEMP 36.8; O2SAT 98
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
[2025-07-28 07:43] VITALS: BP 110/56; PULSE 68; RESP 16; TEMP 36.8; O2SAT 98
[2025-07-28] MEDS: Albuterol Sulfate 90 MCG 8 GM INHALER 2 PUFF INHALE ×2 (07:52→21:26)
[2025-07-28 08:17] LABS: Alanine Aminotransferase 18 U/L (0-40); Albumin Level 5.1 g/dL (3.5-5.0); Alkaline Phosphatase 79 U/L (39-117); Anion Gap 15 (12-20); Aspartate Amino Transferase 18 U/L (5-37); Blood Urea Nitrogen 18 mg/dL (9-16); Calcium 10.1 mg/dL (8.4-10.2); Carbon Dioxide 24 mmol/L (22-29); Chloride 106 mmol/L (96-108); Cholesterol 100 mg/dL (<200); Creatinine Clr Calc Pharmacy 117.9; Estimated Glomerular Filt Rate > 60; HDL Cholesterol 36 mg/dL (>40); Potassium 3.8 mmol/L (3.3-5.1); Sodium 141 mmol/L (135-145); Total Protein 7.4 g/dL (6.5-8.0); Triglycerides 55 mg/dL (<150)
--- NOTE | 2025-07-28 08:21 | P.CONHOSP_ITS ---
History of Present Illness Data of Consult Service Date: 07/28/25 Primary Care Provider: None Physician HPI Reason for consult: Medical Consult 19-year-old male with a past medical history of PTSD, depression and asthma, presented to the ER with the police under section 12 for attempts at self-harm, injuring his right hand and also suicidal statements. Initial workup included no leukocytosis, no anemia, no electrolyte imbalances, no evidence of renal or liver injury. Urine without evidence of infection, negative alcohol, U tox positive for marijuana. X-ray right hand demonstrated no acute injury to the right hand, he has a chronic healed fracture deformity of the 5th metacarpal. On exam patient has no medical concerns. Reports a history of asthma uses albuterol as needed, has never been hospitalized. He was evaluated by the care team and found to be appropriate for admission for further psychiatric care and treatment. Review of Systems 2 Review of Systems: Denies any shortness of breath, chest pain, headaches, dysuria, abdominal pain or discomfort, nausea, vomiting or diarrhea. Denies fever or chills. PMFSH Social History Household Members: Family Housing: Apartment Do you presently have visiting nurse or other home services: No Patient Tobacco Use Status: Current someday Tobacco user Tobacco use type: Cigarette Smoked in Last 30 Days: Yes Patient Interested in Nicotine Replacement: Yes Patient Given Instructions on How to Stop Smoking: Yes Date Education Initiated: 07/27/25 Second Hand Smoke Exposure: No Currently Displaying Signs/Symptoms of Drug Intoxication Withdrawal: No Have you been hit, kicked, punched, or otherwise hurt by someone within the past year? If so, by whom?: No Do you feel safe in your current relationship?: Yes Is there a partner from a previous relationship who is making you feel unsafe now?: No Are you made to feel afraid or neglected: No Advance Directives: No Advance Directives Information Provided: No Do you have thoughts of harming others: None Do you have a plan to hurt others: No Plan Recently lost weight without trying: No How much weight loss: Not applicable Eating poorly because of decreased appetite: No Nutrition screen score: 0 Nutrition Risks: No Nutritional Risk Poor oral hygiene: No service: No Sexual orientation: Straight/Heterosexual Meds Allergies Allergy/AdvReac Type Severity Reaction Status Date / Time No Known Allergies Allergy Verified 07/26/25 16:15 Active Medications: Current Medications Acetaminophen (Acetaminophen 325 Mg Tablet) 650 mg PO Q6H PRN PRN Reason: Headache/Pain, Scale 1-10 Al Hydroxide/Mg Hydroxide (Magnesium Hydrox/Alum Hydrox 30 Ml Oral.Susp) 30 ml PO Q6H PRN PRN Reason: Heartburn/Nausea Albuterol Sulfate (Albuterol Sulfate 90 Mcg 8 Gm Inhaler) 2 puff INHALE Q4H [facility] Last Admin: 07/28/25 07:52 Dose: 2 puff Aripiprazole (Aripiprazole 5 Mg Tablet) 5 mg PO DAILY [facility] Clonidine HCl (Clonidine Hcl 0.1 Mg Tablet) 0.1 mg PO BID PRN; Protocol PRN Reason: severe anxiety Escitalopram Oxalate (Escitalopram Oxalate 10 Mg Tablet) 10 mg PO DAILY [facility] Fluticasone/Vilanterol (Fluticasone/Vilanterol 100/25 Blst.W.Dev) 1 puff INHALE RDAILY [facility] Hydroxyzine HCl (Hydroxyzine Hcl 50 Mg Tablet) 50 mg PO Q6H PRN PRN Reason: mild anxiety Magnesium Hydroxide (Milk Of Magnesia 30 Ml Oral.Susp) 30 ml PO DAILY PRN PRN Reason: Constipation Montelukast Sodium (Montelukast Sodium 10 Mg Tablet) 10 mg PO BEDTIME [facility] Last Admin: 07/27/25 20:04 Dose: 10 mg Nicotine (Nicotine 21 Mg Patch.Td24) 21 mg TRANSDERMA DAILY [facility] Nicotine Polacrilex (Nicotine Polacrilex 2 Mg Gum) 4 mg BUCCAL Q2H PRN PRN Reason: Nicotine Cravings Last Admin: 07/27/25 18:44 Dose: 4 mg Olanzapine (Olanzapine 5 Mg Tablet) 5 mg PO Q4H PRN PRN Reason: agitation Last Admin: 07/27/25 21:41 Dose: 5 mg Trazodone HCl (Trazodone Hcl 50 Mg Tablet) 50 mg PO BEDTIME MRX1 PRN PRN Reason: Insomnia Last Admin: 07/27/25 21:41 Dose: 50 mg Home Medications ?Medication ?Instructions ?Recorded ?Confirmed ?Last Taken ?Type albuterol sulfate 90 mcg/actuation 2 puff inhalation Q 4-6H 07/26/25 07/26/25 07/25/25 History aerosol inhaler (Ventolin HFA) fluticasone 250 mcg-salmeterol 50 1 ea inhalation BID 07/27/25 07/27/25 Unknown History mcg/dose blistr powdr for inhalation (Advair Diskus) montelukast 10 mg tablet 10 mg PO BEDTIME 07/27/25 Unknown History quetiapine 400 mg tablet,extended 800 mg PO BEDTIME 07/27/25 Unknown History release 24 hr (Seroquel XR) Physical Exam 2 Vital Signs and Narrative: Vital Signs: Last Vital Signs Temp 98.2 F 07/28/25 07:43 Pulse 68 07/28/25 07:43 Resp 16 07/28/25 07:43 BP 110/56 L 07/28/25 07:43 Pulse Ox 98 07/28/25 07:43 O2 Del Method Room Air 07/28/25 07:43 BMI result Body Mass Index 25.8 Alert and oriented X3, calm and cooperative. Answers questions. Sleepy. Neuro: CN II-X11 intact, no deficits, visual acuity intact EYES: PERRLA, EOM intact ENT: Hearing intact, MMM Cardiac: S1 S2 RRR, No ectopy Pulmonary: lungs clear to auscultation, No increased WOB. Abdominal: BS active in all 4 quadrants, no guarding or tenderness MSK: Strength 5/5 upper and lower extremities : Deferred Extremities: No edema in lower extremities Psych: Mood stable, Quiet and cooperative. Skin: Warm and dry, Intact Results Labs 07/26/25 16:41 07/28/25 07:36 Labs: Laboratory Results - last 24 hr 07/28/25 07:36 Anion Gap 15 Estim Creat Clear Calc 117.9 Estimated GFR > 60 Random Glucose 92 Estimat Average Glucose 103 Hemoglobin A1c % 5.2 Calcium 10.1 Total Bilirubin 0.5 AST 18 ALT 18 Alkaline Phosphatase 79 Total Protein 7.4 Albumin 5.1 H Triglycerides 55 Cholesterol 100 LDL Cholesterol, Calc 53 HDL Cholesterol 36 L Assessment and Plan (1) Asthma: Status: Acute Plan 19-year-old male with past medical history listed below, presented to the emergency department with suicidal ideation, now admitted for further stabilization. Depression/suicidal ideations/PTSD Treatment per psychiatric team Asthma Continue montelukast, Breo Ellipta and albuterol as needed. Not in acute exacerbation Thank you for allowing me to participate in the care of this patient. Will follow with you, please notify medical provider with any changes in condition or concerns.
[2025-07-28 08:28] LABS: Thyroid Stimulating Hormone 1.85 uIU/mL (0.32-4.0)
[2025-07-28] MEDS: Fluticasone/Vilanterol 100/25 BLST.W.DEV 1 PUFF INHALE (08:29)
--- NOTE | 2025-07-28 10:07 | P.PNPSI_ITS ---
Subjective Subjective Date of Service: 07/28/25 Reason For Visit: SI Subjective Notes: 3 Day Interim History: Active on unit. Patient reports feeling okay today;pt stated, I hurt myself before but I've never tried to kill myself. I was just mad. I wouldn't kill myself. I have a daughter and she's my whole world . denies SI/HI/VH/AH. Patient denies any side effects from medications. 3 day notice up on 08/01/25. Pt focused on obtaining an apartment when he is discharged so he doesnt have to live with his grandmother. continue tx plan. Medication Compliance: Yes Side effects from medications: No Attending Groups: Intermittent Mental Status Exam Mental Status Exam Narrative: Pt is alert and oriented; behavior is cooperative and calm; dressed in casual attire; mood is described as good ; eye contact appropriate; Speech is normal rate, volume and not pressured; thought process is organized and goal directed; Thought content is on tx/discharge; denies SI/HI/VH/AH. Diagnostics Vital Signs (24Hr): Vital Signs - 24 hr 07/27/25 14:57 07/27/25 16:51 07/27/25 20:00 Temperature 98.2 F 97.8 F 98.2 F Pulse Rate 99 108 H 105 H Respiratory Rate 18 18 16 Blood Pressure 127/63 160/70 H 123/68 Pulse Oximetry 96 97 98 Oxygen Delivery Method Room Air Room Air Room Air 07/28/25 07:43 Temperature 98.2 F Pulse Rate 68 Respiratory Rate 16 Blood Pressure 110/56 L Pulse Oximetry 98 Oxygen Delivery Method Room Air BMI result Body Mass Index 25.8 Labs 07/26/25 16:41 07/28/25 07:36 Labs: Laboratory Results - last 48 hr 07/26/25 07/28/25 07/28/25 16:41 07:36 07:36 WBC 11.0 H RBC 5.87 H Hgb 16.4 Hct 48.4 MCV 82.5 MCH 27.9 MCHC 33.9 RDW 12.6 Plt Count 291 MPV 10.5 Immature Gran % (Auto) 0.5 H Neut % (Auto) 80.6 H Lymph % (Auto) 11.2 L [place] % (Auto) 6.5 Eos % (Auto) 0.5 Baso % (Auto) 0.7 Lymph # (Auto) 1.2 [place] # (Auto) 0.7 Eos # (Auto) 0.1 Baso # (Auto) 0.1 Abs Immat Gran (auto) 0.06 H Absolute Neuts (auto) 8.9 H Absolute Nucleated RBC 0.000 Nucleated RBC % (auto) 0.0 Sodium 143 141 Potassium 4.1 3.8 Chloride 106 106 Carbon Dioxide 27 24 Anion Gap 14 15 BUN 15 18 H Creatinine 1.18 1.04 Estim Creat Clear Calc 103.9 117.9 Estimated GFR > 60 > 60 Random Glucose 97 92 Estimat Average Glucose 103 Hemoglobin A1c % 5.2 Calcium 10.6 H 10.1 Total Bilirubin 0.6 0.5 AST 21 18 ALT 23 18 Alkaline Phosphatase 85 79 Total Protein 8.0 7.4 Albumin 5.5 H 5.1 H Triglycerides 55 Cholesterol 100 LDL Cholesterol, Calc 53 HDL Cholesterol 36 L TSH 1.85 1.80 Urine Color Yellow Urine Appearance Turbid Urine pH 7.0 Ur Specific [place] 1.025 Urine Protein Trace Urine Glucose (UA) Negative Urine Ketones 80 Urine Blood Negative Urine Nitrite Negative Ur Leukocyte Esterase Negative Urine RBC 0-2 Urine WBC 0-5 Ur Squamous Epith Cells 0-2 Urine Bacteria None Seen Hyaline Casts 6-10 Urine Opiates Screen Not Detected Ur Buprenorphine Scrn Not Detected Ur Oxycodone Screen Not Detected Urine Methadone Screen Not Detected Urine Fentanyl Screen Not Detected Ur Barbiturates Screen Not Detected Ur Phencyclidine Scrn Not Detected Ur Amphetamines Screen Not Detected U Benzodiazepines Scrn Not Detected Urine Cocaine Screen Not Detected U Marijuana (THC) Screen POSITIVE H Ethyl Alcohol < 10 Medications Medications Current Medications Acetaminophen (Acetaminophen 325 Mg Tablet) 650 mg PO Q6H PRN PRN Reason: Headache/Pain, Scale 1-10 Al Hydroxide/Mg Hydroxide (Magnesium Hydrox/Alum Hydrox 30 Ml Oral.Susp) 30 ml PO Q6H PRN PRN Reason: Heartburn/Nausea Albuterol Sulfate (Albuterol Sulfate 90 Mcg 8 Gm Inhaler) 2 puff INHALE Q4H [facility] Last Admin: 07/28/25 08:36 Dose: Not Given Aripiprazole (Aripiprazole 5 Mg Tablet) 5 mg PO DAILY [facility] Last Admin: 07/28/25 08:28 Dose: 5 mg Clonidine HCl (Clonidine Hcl 0.1 Mg Tablet) 0.1 mg PO BID PRN; Protocol PRN Reason: severe anxiety Last Admin: 07/28/25 08:34 Dose: 0.1 mg Escitalopram Oxalate (Escitalopram Oxalate 10 Mg Tablet) 10 mg PO DAILY [facility] Last Admin: 07/28/25 08:28 Dose: 10 mg Fluticasone/Vilanterol (Fluticasone/Vilanterol 100/25 Blst.W.Dev) 1 puff INHALE RDAILY [facility] Last Admin: 07/28/25 08:29 Dose: 1 puff Hydroxyzine HCl (Hydroxyzine Hcl 50 Mg Tablet) 50 mg PO Q6H PRN PRN Reason: mild anxiety Magnesium Hydroxide (Milk Of Magnesia 30 Ml Oral.Susp) 30 ml PO DAILY PRN PRN Reason: Constipation Montelukast Sodium (Montelukast Sodium 10 Mg Tablet) 10 mg PO BEDTIME [facility] Last Admin: 07/27/25 20:04 Dose: 10 mg Nicotine (Nicotine 21 Mg Patch.Td24) 21 mg TRANSDERMA DAILY [facility] Last Admin: 07/28/25 08:36 Dose: Not Given Nicotine Polacrilex (Nicotine Polacrilex 2 Mg Gum) 4 mg BUCCAL Q2H PRN PRN Reason: Nicotine Cravings Last Admin: 07/28/25 08:34 Dose: 4 mg Olanzapine (Olanzapine 5 Mg Tablet) 5 mg PO Q4H PRN PRN Reason: agitation Last Admin: 07/27/25 21:41 Dose: 5 mg Trazodone HCl (Trazodone Hcl 50 Mg Tablet) 50 mg PO BEDTIME MRX1 PRN PRN Reason: Insomnia Last Admin: 07/27/25 21:41 Dose: 50 mg Allergies Allergies Allergy/AdvReac Type Severity Reaction Status Date / Time No Known Allergies Allergy Verified 07/26/25 16:15 Assessment & Plan Assessment & Plan (1) Depression: Status: Acute Code(s): F32.A - Depression, unspecified (2) PTSD (post-traumatic stress disorder): Status: Acute Code(s): F43.10 - Post-traumatic stress disorder, unspecified (3) Asthma: Status: Acute Code(s): J45.909 - Unspecified asthma, uncomplicated Plan Pt is a 19 year old male with hx of asthma, depression, anger management, and PTSD who presented to [facility] via EMS secondary to getting into an argument with his girlfriend, punching a wall and hitting his head against the wall. Pt made suicidal statements during the argument of I want to kill myself , Pt reported suicidal statements but denied any plan . Pt stated he has been off his medications for the past 1 -2 months due to not feeling it was helping him feel any better. Pt stated I have been off medications and in therapy since I was a child, my therapist only talks to me for 30 seconds there is no point . Pt was emotional and tearful during assessment, stating he and his girlfriend argue 3-4 times a week, he struggles to manage his emotions and self harms when upset ( superficial cutting on legs /arms). Pt reported suicidal ideations but did not stated a plan. Pt stated his poor appetite is due to financial concerns. Formulation/clinical reasoning: Stopped taking medication, increase in depression and anxiety symptoms, anger issues, was punching the wall and making suicidal statements, cutting self. History of PTSD, depression, anger management. Given the above information, patient will be benefit in restrictive environment for own safety, restart on medication/medication management, and refer patient to outpatient care services for aftercare. Plan: Patient on 15 minute checks for safety. Admitted to . 3 day notice Work with treatment team to do collateral Contact the hospitalist regarding hospitalist consultation on admission 07/27: Medication trials: Seroquel was taking up to 800mg, History of Prozac 40 mg in the morning history of sertraline., clonidine as needed They are not helpful. Report he has pickup but not really actually took the medication. Discussed with patient regarding other antidepressant medication for anxiety and depression, patient agreed to start on Lexapro and Abilify for mood and anger issues. PRNs clonidine available due to elevated blood pressure. Hydroxyzine increased up to 50 PRNs Lexapro 10 mg daily for anxiety and depression Abilify 5 mg daily in the morning. If it sedated can change to bedtime in the future. 07/28: Active on unit. Patient reports feeling okay today;pt stated, I hurt myself before but I've never tried to kill myself. I was just mad. I wouldn't kill myself. I have a daughter and she's my whole world . denies SI/HI/VH/AH. Patient denies any side effects from medications. 3 day notice up on 08/01/25. Pt focused on obtaining an apartment when he is discharged so he doesnt have to live with his grandmother. continue tx plan. Patient educated on: diagnosis, medication risk/benefits and therapeutic strategies Reason for continued inpatient stay Substantial Risk for: med/psych decompensation Time Spent With Patient Time: Total time managing care of this patient today _20___ minutes.
[2025-07-28 20:00] VITALS: BP 124/72; PULSE 88; RESP 16; TEMP 36.3; O2SAT 98
[2025-07-29 07:55] VITALS: BP 106/63; PULSE 63; RESP 20; TEMP 36.2; O2SAT 99
[2025-07-29] MEDS: Fluticasone/Vilanterol 100/25 BLST.W.DEV 1 PUFF INHALE (08:31)
[2025-07-29] MEDS: Nicotine 21 MG PATCH.TD24 TRANSDERMA (08:32)
[2025-07-29] MEDS: Albuterol Sulfate 90 MCG 8 GM INHALER 2 PUFF INHALE (08:40)
--- NOTE | 2025-07-29 14:31 | HO.PSYCHPN ---
Subjective Subjective Date of Service: 07/29/25 Reason For Visit: SI Subjective Notes: 3 Day Interim History: Active on unit. social with peers. attending groups. Patient reports feeling good today; pt stated, I feel like the medications are helping with my anxiety. My mood feels better than when I first got here . denies SI/HI/VH/AH. 3 day notice up on 08/01/25. Continue tx plan. Medication Compliance: Yes Side effects from medications: No Attending Groups: Yes Mental Status Exam Mental Status Exam Narrative: Pt is alert and oriented; behavior is cooperative and calm; dressed in casual attire; mood is described as good ; eye contact appropriate; Speech is normal rate, volume and not pressured; thought process is organized and goal directed; Thought content is on tx/discharge; denies SI/HI/VH/AH. Diagnostics Vital Signs (24Hr): Vital Signs - 24 hr 07/28/25 20:00 07/29/25 07:55 Temperature 97.4 F 97.2 F Pulse Rate 88 63 Respiratory Rate 16 20 Blood Pressure 124/72 106/63 Pulse Oximetry 98 99 Oxygen Delivery Method Room Air Room Air BMI result Body Mass Index 25.8 Labs 07/26/25 16:41 07/28/25 07:36 Labs: Laboratory Results - last 48 hr 07/28/25 07/28/25 07:36 07:36 Sodium 141 Potassium 3.8 Chloride 106 Carbon Dioxide 24 Anion Gap 15 BUN 18 H Creatinine 1.04 Estim Creat Clear Calc 117.9 Estimated GFR > 60 Random Glucose 92 Estimat Average Glucose 103 Hemoglobin A1c % 5.2 Calcium 10.1 Total Bilirubin 0.5 AST 18 ALT 18 Alkaline Phosphatase 79 Total Protein 7.4 Albumin 5.1 H Triglycerides 55 Cholesterol 100 LDL Cholesterol, Calc 53 HDL Cholesterol 36 L TSH 1.85 1.80 Medications Medications Current Medications Acetaminophen (Acetaminophen 325 Mg Tablet) 650 mg PO Q6H PRN PRN Reason: Headache/Pain, Scale 1-10 Al Hydroxide/Mg Hydroxide (Magnesium Hydrox/Alum Hydrox 30 Ml Oral.Susp) 30 ml PO Q6H PRN PRN Reason: Heartburn/Nausea Albuterol Sulfate (Albuterol Sulfate 90 Mcg 8 Gm Inhaler) 2 puff INHALE Q4H [facility] Last Admin: 07/29/25 12:46 Dose: Not Given Aripiprazole (Aripiprazole 5 Mg Tablet) 5 mg PO DAILY [facility] Last Admin: 07/29/25 08:30 Dose: 5 mg Clonidine HCl (Clonidine Hcl 0.1 Mg Tablet) 0.1 mg PO BID PRN; Protocol PRN Reason: severe anxiety Last Admin: 07/28/25 08:34 Dose: 0.1 mg Escitalopram Oxalate (Escitalopram Oxalate 10 Mg Tablet) 10 mg PO DAILY [facility] Last Admin: 07/29/25 08:30 Dose: 10 mg Fluticasone/Vilanterol (Fluticasone/Vilanterol 100/25 Blst.W.Dev) 1 puff INHALE RDAILY [facility] Last Admin: 07/29/25 08:31 Dose: 1 puff Hydroxyzine HCl (Hydroxyzine Hcl 50 Mg Tablet) 50 mg PO Q6H PRN PRN Reason: mild anxiety Last Admin: 07/29/25 08:35 Dose: 50 mg Magnesium Hydroxide (Milk Of Magnesia 30 Ml Oral.Susp) 30 ml PO DAILY PRN PRN Reason: Constipation Montelukast Sodium (Montelukast Sodium 10 Mg Tablet) 10 mg PO BEDTIME [facility] Last Admin: 07/28/25 20:18 Dose: 10 mg Nicotine (Nicotine 21 Mg Patch.Td24) 21 mg TRANSDERMA DAILY [facility] Last Admin: 07/29/25 08:32 Dose: 21 mg Nicotine Polacrilex (Nicotine Polacrilex 2 Mg Gum) 4 mg BUCCAL Q2H PRN PRN Reason: Nicotine Cravings Last Admin: 07/29/25 08:35 Dose: 4 mg Olanzapine (Olanzapine 5 Mg Tablet) 5 mg PO Q4H PRN PRN Reason: agitation Last Admin: 07/28/25 20:18 Dose: 5 mg Trazodone HCl (Trazodone Hcl 50 Mg Tablet) 50 mg PO BEDTIME MRX1 PRN PRN Reason: Insomnia Last Admin: 07/28/25 21:26 Dose: 50 mg Allergies Allergies Allergy/AdvReac Type Severity Reaction Status Date / Time No Known Allergies Allergy Verified 07/26/25 16:15 Assessment & Plan Assessment & Plan (1) Depression: Status: Acute Code(s): F32.A - Depression, unspecified (2) PTSD (post-traumatic stress disorder): Status: Acute Code(s): F43.10 - Post-traumatic stress disorder, unspecified Plan Pt is a 19 year old male with hx of asthma, depression, anger management, and PTSD who presented to [facility] via EMS secondary to getting into an argument with his girlfriend, punching a wall and hitting his head against the wall. Pt made suicidal statements during the argument of I want to kill myself , Pt reported suicidal statements but denied any plan . Pt stated he has been off his medications for the past 1 -2 months due to not feeling it was helping him feel any better. Pt stated I have been off medications and in therapy since I was a child, my therapist only talks to me for 30 seconds there is no point . Pt was emotional and tearful during assessment, stating he and his girlfriend argue 3-4 times a week, he struggles to manage his emotions and self harms when upset ( superficial cutting on legs /arms). Pt reported suicidal ideations but did not stated a plan. Pt stated his poor appetite is due to financial concerns. Formulation/clinical reasoning: Stopped taking medication, increase in depression and anxiety symptoms, anger issues, was punching the wall and making suicidal statements, cutting self. History of PTSD, depression, anger management. Given the above information, patient will be benefit in restrictive environment for own safety, restart on medication/medication management, and refer patient to outpatient care services for aftercare. Plan: Patient on 15 minute checks for safety. Admitted to [facility]. 3 day notice Work with treatment team to do collateral Contact the hospitalist regarding hospitalist consultation on admission 07/27: Medication trials: Seroquel was taking up to 800mg, History of Prozac 40 mg in the morning history of sertraline., clonidine as needed They are not helpful. Report he has pickup but not really actually took the medication. Discussed with patient regarding other antidepressant medication for anxiety and depression, patient agreed to start on Lexapro and Abilify for mood and anger issues. PRNs clonidine available due to elevated blood pressure. Hydroxyzine increased up to 50 PRNs Lexapro 10 mg daily for anxiety and depression Abilify 5 mg daily in the morning. If it sedated can change to bedtime in the future. 07/28: Active on unit. Patient reports feeling okay today;pt stated, I hurt myself before but I've never tried to kill myself. I was just mad. I wouldn't kill myself. I have a daughter and she's my whole world . denies SI/HI/VH/AH. Patient denies any side effects from medications. 3 day notice up on 08/01/25. Pt focused on obtaining an apartment when he is discharged so he doesnt have to live with his grandmother. continue tx plan. 07/29: Active on unit. social with peers. attending groups. Patient reports feeling good today; pt stated, I feel like the medications are helping with my anxiety. My mood feels better than when I first got here . denies SI/HI/VH/AH. 3 day notice up on 08/01/25. Continue tx plan. Patient educated on: diagnosis, medication risk/benefits and therapeutic strategies Reason for continued inpatient stay Substantial Risk for: med/psych decompensation Time Spent With Patient Time: Total time managing care of this patient today _20___ minutes.
[2025-07-29 19:40] VITALS: BP 114/56; PULSE 80; RESP 16; TEMP 36.4; O2SAT 98
[2025-07-30 08:00] VITALS: BP 117/57; PULSE 72; RESP 16; TEMP 36.6; O2SAT 97
[2025-07-30] MEDS: Nicotine 21 MG PATCH.TD24 TRANSDERMA (08:50)
[2025-07-30] MEDS: Fluticasone/Vilanterol 100/25 BLST.W.DEV 1 PUFF INHALE (08:51)
[2025-07-30 08:54] VITALS: BP 117/57
[2025-07-30] MEDS: Albuterol Sulfate 90 MCG 8 GM INHALER 2 PUFF INHALE (08:55)
--- NOTE | 2025-07-30 09:20 | HO.PSYCHPN ---
Subjective Subjective Date of Service: 07/30/25 Reason For Visit: SI Subjective Notes: 3 Day Interim History: met with patient. Discussed with Nursing. Has endorsed a couple of instances of hearing things that have been upsetting. [place] a whisper and also knocking on a door a couple of times yesterday. Experienced this today again and has checked with peers i.e. nobody else heard door knock loudly but were also present. Has never experienced anything like this before and very distressed by same. Believes that is related to medications. Abilify and Lexapro were started at the same time. We discussed symptoms he hoped to have addressed by medication regimen which included PTSD, mood lability, depression and anxiety. Reports compared to admission his mood has been much more regulated crying less, less agitated overwhelmed, less depressed. Given this, we decided to discontinue Lexapro and see if auditory hallucinations to improve. Otherwise is feeling very supported on the unit. Looking forward to discharge planning and follow-up care. Medication Compliance: Yes Side effects from medications: No Attending Groups: Yes Review of Systems Acute medical concerns: No Review of Systems Review of Systems Hearing noises Mental Status Exam Mental Status Exam Narrative: Pt is alert and oriented; behavior is cooperative and calm; dressed in casual attire; mood is described as good ; eye contact appropriate; Speech is normal rate, volume and not pressured; thought process is organized and goal directed; Thought content is on tx/discharge; denies SI/HI. endorsed hearing noises yesterday and today. No visual hallucinations. Insight and judgment good Diagnostics Vital Signs (24Hr): Vital Signs - 24 hr 07/29/25 19:40 07/30/25 08:54 Temperature 97.6 F Pulse Rate 80 Respiratory Rate 16 Blood Pressure 114/56 L 117/57 L Pulse Oximetry 98 Oxygen Delivery Method Room Air BMI result Body Mass Index 25.8 Labs 07/26/25 16:41 07/28/25 07:36 Medications Medications Current Medications Acetaminophen (Acetaminophen 325 Mg Tablet) 650 mg PO Q6H PRN PRN Reason: Headache/Pain, Scale 1-10 Al Hydroxide/Mg Hydroxide (Magnesium Hydrox/Alum Hydrox 30 Ml Oral.Susp) 30 ml PO Q6H PRN PRN Reason: Heartburn/Nausea Albuterol Sulfate (Albuterol Sulfate 90 Mcg 8 Gm Inhaler) 2 puff INHALE Q4H [facility] Last Admin: 07/30/25 08:55 Dose: 2 puff Aripiprazole (Aripiprazole 5 Mg Tablet) 5 mg PO DAILY [facility] Last Admin: 07/30/25 08:50 Dose: 5 mg Clonidine HCl (Clonidine Hcl 0.1 Mg Tablet) 0.1 mg PO BID PRN; Protocol PRN Reason: severe anxiety Last Admin: 07/30/25 08:54 Dose: 0.1 mg Escitalopram Oxalate (Escitalopram Oxalate 10 Mg Tablet) 10 mg PO DAILY [facility] Last Admin: 07/30/25 08:50 Dose: 10 mg Fluticasone/Vilanterol (Fluticasone/Vilanterol 100/25 Blst.W.Dev) 1 puff INHALE RDAILY [facility] Last Admin: 07/30/25 08:51 Dose: 1 puff Hydroxyzine HCl (Hydroxyzine Hcl 50 Mg Tablet) 50 mg PO Q6H PRN PRN Reason: mild anxiety Last Admin: 07/29/25 18:20 Dose: 50 mg Magnesium Hydroxide (Milk Of Magnesia 30 Ml Oral.Susp) 30 ml PO DAILY PRN PRN Reason: Constipation Montelukast Sodium (Montelukast Sodium 10 Mg Tablet) 10 mg PO BEDTIME [facility] Last Admin: 07/29/25 21:07 Dose: 10 mg Nicotine (Nicotine 21 Mg Patch.Td24) 21 mg TRANSDERMA DAILY [facility] Last Admin: 07/30/25 08:50 Dose: 21 mg Nicotine Polacrilex (Nicotine Polacrilex 2 Mg Gum) 4 mg BUCCAL Q2H PRN PRN Reason: Nicotine Cravings Last Admin: 07/30/25 08:55 Dose: 4 mg Olanzapine (Olanzapine 5 Mg Tablet) 5 mg PO Q4H PRN PRN Reason: agitation Last Admin: 07/29/25 21:08 Dose: 5 mg Ondansetron HCl (Ondansetron Odt 4 Mg Tab.Rapdis) 4 mg TRANSLINGU Q6H PRN PRN Reason: Nausea and Vomiting Last Admin: 07/29/25 18:39 Dose: 4 mg Trazodone HCl (Trazodone Hcl 50 Mg Tablet) 50 mg PO BEDTIME MRX1 PRN PRN Reason: Insomnia Last Admin: 07/29/25 22:05 Dose: 50 mg Allergies Allergies Allergy/AdvReac Type Severity Reaction Status Date / Time No Known Allergies Allergy Verified 12/02/25 16:15 Assessment & Plan Assessment & Plan (1) Depression: Status: Acute Code(s): F32.A - Depression, unspecified (2) PTSD (post-traumatic stress disorder): Status: Acute Code(s): F43.10 - Post-traumatic stress disorder, unspecified Plan Pt is a 19 year old male with hx of asthma, depression, anger management, and PTSD who presented to [facility] [place] secondary to getting into an argument with his girlfriend, punching a wall and hitting his head against the wall. Pt made suicidal statements during the argument of I want to kill myself , Pt reported suicidal statements but denied any plan . Pt stated he has been off his medications for the past 1 -2 months due to not feeling it was helping him feel any better. Pt stated I have been off medications and in therapy since I was a child, my therapist only talks to me for 30 seconds there is no point . Pt was emotional and tearful during assessment, stating he and his girlfriend argue 3-4 times a week, he struggles to manage his emotions and self harms when upset ( superficial cutting on legs /arms). Pt reported suicidal ideations but did not stated a plan. Pt stated his poor appetite is due to financial concerns. Formulation/clinical reasoning: Stopped taking medication, increase in depression and anxiety symptoms, anger issues, was punching the wall and making suicidal statements, cutting self. History of PTSD, depression, anger management. Given the above information, patient will be benefit in restrictive environment for own safety, restart on medication/medication management, and refer patient to outpatient care services for aftercare. Plan: Patient on 15 minute checks for safety. Admitted to [facility]. 3 day notice Work with treatment team to do collateral Contact the hospitalist regarding hospitalist consultation on admission 07/27: Medication trials: Seroquel was taking up to 800mg, History of Prozac 40 mg in the morning history of sertraline., clonidine as needed They are not helpful. Report he has pickup but not really actually took the medication. Discussed with patient regarding other antidepressant medication for anxiety and depression, patient agreed to start on Lexapro and Abilify for mood and anger issues. PRNs clonidine available due to elevated blood pressure. Hydroxyzine increased up to 50 PRNs Lexapro 10 mg daily for anxiety and depression Abilify 5 mg daily in the morning. If it sedated can change to bedtime in the future. 07/28: Active on unit. Patient reports feeling okay today;pt stated, I hurt myself before but I've never tried to kill myself. I was just mad. I wouldn't kill myself. I have a daughter and she's my whole world . denies SI/HI/VH/AH. Patient denies any side effects from medications. 3 day notice up on 08/01/25. Pt focused on obtaining an apartment when he is discharged so he doesnt have to live with his grandmother. continue tx plan. 07/29: Active on unit. social with peers. attending groups. Patient reports feeling good today; pt stated, I feel like the medications are helping with my anxiety. My mood feels better than when I first got here . denies SI/HI/VH/AH. 3 day notice up on 08/01/25. Continue tx plan. 07/30: Believes AH (noises) is related to medications. Abilify and Lexapro were started at the same time. We discussed symptoms he hoped to have addressed by medication regimen which included PTSD, mood lability, depression and anxiety. Reports compared to admission his mood has been much more regulated crying less, less agitated overwhelmed, less depressed. Given this, we decided to discontinue Lexapro and see if auditory hallucinations to improve. Reason for continued inpatient stay Substantial Risk for: rapid decompensation Time Spent With Patient Time: Total time managing care of this patient today ____ minutes.
[2025-07-30 19:48] VITALS: BP 122/80; PULSE 90; RESP 16; TEMP 36.4; O2SAT 98
[2025-07-30 22:11] VITALS: BP 130/72
--- NOTE | 2025-07-31 07:52 | HO.PSYCHPN ---
Subjective Subjective Date of Service: 07/31/25 Reason For Visit: SI Subjective Notes: 3 Day Interim History: met with patient. Discussed with Nursing. Overall reports no hallucinations since yesterday and feeling very positive regarding this. Sleeping well. Mood and anxiety under much better control. No SI. No HI. Looking forward to discharge planning and connecting with aftercare through agency [facility] in [place]. Also possibility of couples work through that agency which could be helpful. 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 Medication Compliance: Yes Side effects from medications: No Attending Groups: Yes Review of Systems Acute medical concerns: No Review of Systems Review of Systems nothing of note Mental Status Exam Mental Status Exam Narrative: Pt is alert and oriented; behavior is cooperative and calm; dressed in casual attire; mood is described as good ; eye contact appropriate; Speech is normal rate, volume and not pressured; thought process is organized and goal directed; Thought content is on tx/discharge; denies SI/HI. No hallucinations or psychosis or paranoia. Insight and judgment good Diagnostics Vital Signs (24Hr): Vital Signs - 24 hr 07/30/25 08:00 07/30/25 08:54 07/30/25 19:48 Temperature 98 F 97.6 F Pulse Rate 72 90 Respiratory Rate 16 16 Blood Pressure 117/57 L 117/57 L 122/80 Pulse Oximetry 97 98 Oxygen Delivery Method Room Air Room Air 07/30/25 22:11 Temperature Pulse Rate Respiratory Rate Blood Pressure 130/72 Pulse Oximetry Oxygen Delivery Method BMI result Body Mass Index 25.8 Labs 07/26/25 16:41 07/28/25 07:36 Medications Medications Current Medications Acetaminophen (Acetaminophen 325 Mg Tablet) 650 mg PO Q6H PRN PRN Reason: Headache/Pain, Scale 1-10 Al Hydroxide/Mg Hydroxide (Magnesium Hydrox/Alum Hydrox 30 Ml Oral.Susp) 30 ml PO Q6H PRN PRN Reason: Heartburn/Nausea Albuterol Sulfate (Albuterol Sulfate 90 Mcg 8 Gm Inhaler) 2 puff INHALE Q4H [facility] Last Admin: 07/31/25 06:28 Dose: Not Given Aripiprazole (Aripiprazole 5 Mg Tablet) 5 mg PO DAILY [facility] Last Admin: 07/30/25 08:50 Dose: 5 mg Clonidine HCl (Clonidine Hcl 0.1 Mg Tablet) 0.1 mg PO BID PRN; Protocol PRN Reason: severe anxiety Last Admin: 07/30/25 22:11 Dose: 0.1 mg Fluticasone/Vilanterol (Fluticasone/Vilanterol 100/25 Blst.W.Dev) 1 puff INHALE RDAILY [facility] Last Admin: 07/30/25 08:51 Dose: 1 puff Hydroxyzine HCl (Hydroxyzine Hcl 50 Mg Tablet) 50 mg PO Q6H PRN PRN Reason: mild anxiety Last Admin: 07/30/25 20:40 Dose: 50 mg Magnesium Hydroxide (Milk Of Magnesia 30 Ml Oral.Susp) 30 ml PO DAILY PRN PRN Reason: Constipation Montelukast Sodium (Montelukast Sodium 10 Mg Tablet) 10 mg PO BEDTIME [facility] Last Admin: 07/30/25 20:40 Dose: 10 mg Nicotine (Nicotine 21 Mg Patch.Td24) 21 mg TRANSDERMA DAILY [facility] Last Admin: 07/30/25 08:50 Dose: 21 mg Nicotine Polacrilex (Nicotine Polacrilex 2 Mg Gum) 4 mg BUCCAL Q2H PRN PRN Reason: Nicotine Cravings Last Admin: 07/30/25 22:11 Dose: 4 mg Olanzapine (Olanzapine 5 Mg Tablet) 5 mg PO Q4H PRN PRN Reason: agitation Last Admin: 07/30/25 20:40 Dose: 5 mg Ondansetron HCl (Ondansetron Odt 4 Mg Tab.Rapdis) 4 mg TRANSLINGU Q6H PRN PRN Reason: Nausea and Vomiting Last Admin: 07/29/25 18:39 Dose: 4 mg Trazodone HCl (Trazodone Hcl 50 Mg Tablet) 50 mg PO BEDTIME MRX1 PRN PRN Reason: Insomnia Last Admin: 07/30/25 22:11 Dose: 50 mg Allergies Allergies Allergy/AdvReac Type Severity Reaction Status Date / Time No Known Allergies Allergy Verified 07/26/25 16:15 Assessment & Plan Assessment & Plan (1) Depression: Status: Acute Code(s): F32.A - Depression, unspecified (2) PTSD (post-traumatic stress disorder): Status: Acute Code(s): F43.10 - Post-traumatic stress disorder, unspecified Plan Pt is a 19 year old male with hx of asthma, depression, anger management, and PTSD who presented to [facility] ER via EMS secondary to getting into an argument with his girlfriend, punching a wall and hitting his head against the wall. Pt made suicidal statements during the argument of I want to kill myself , Pt reported suicidal statements but denied any plan . Pt stated he has been off his medications for the past 1 -2 months due to not feeling it was helping him feel any better. Pt stated I have been off medications and in therapy since I was a child, my therapist only talks to me for 30 seconds there is no point . Pt was emotional and tearful during assessment, stating he and his girlfriend argue 3-4 times a week, he struggles to manage his emotions and self harms when upset ( superficial cutting on legs /arms). Pt reported suicidal ideations but did not stated a plan. Pt stated his poor appetite is due to financial concerns. Formulation/clinical reasoning: Stopped taking medication, increase in depression and anxiety symptoms, anger issues, was punching the wall and making suicidal statements, cutting self. History of PTSD, depression, anger management. Given the above information, patient will be benefit in restrictive environment for own safety, restart on medication/medication management, and refer patient to outpatient care services for aftercare. Plan: Patient on 15 minute checks for safety. Admitted to M5. 3 day notice Work with treatment team to do collateral Contact the hospitalist regarding hospitalist consultation on admission 07/27: Medication trials: Seroquel was taking up to 800mg, History of Prozac 40 mg in the morning history of sertraline., clonidine as needed They are not helpful. Report he has pickup but not really actually took the medication. Discussed with patient regarding other antidepressant medication for anxiety and depression, patient agreed to start on Lexapro and Abilify for mood and anger issues. PRNs clonidine available due to elevated blood pressure. Hydroxyzine increased up to 50 PRNs Lexapro 10 mg daily for anxiety and depression Abilify 5 mg daily in the morning. If it sedated can change to bedtime in the future. 07/28: Active on unit. Patient reports feeling okay today;pt stated, I hurt myself before but I've never tried to kill myself. I was just mad. I wouldn't kill myself. I have a daughter and she's my whole world . denies SI/HI/VH/AH. Patient denies any side effects from medications. 3 day notice up on 08/01/25. Pt focused on obtaining an apartment when he is discharged so he doesnt have to live with his grandmother. continue tx plan. 07/29: Active on unit. social with peers. attending groups. Patient reports feeling good today; pt stated, I feel like the medications are helping with my anxiety. My mood feels better than when I first got here . denies SI/HI/VH/AH. 3 day notice up on 08/01/25. Continue tx plan. 07/30: Believes AH (noises) is related to medications. Abilify and Lexapro were started at the same time. We discussed symptoms he hoped to have addressed by medication regimen which included PTSD, mood lability, depression and anxiety. Reports compared to admission his mood has been much more regulated crying less, less agitated overwhelmed, less depressed. Given this, we decided to discontinue Lexapro and see if auditory hallucinations to improve. 07/31/2025: No changes to current regimen. Doing well. No hallucinations Reason for continued inpatient stay Substantial Risk for: rapid decompensation Time Spent With Patient Time: Total time managing care of this patient today ____ minutes.
[2025-07-31 08:00] VITALS: BP 101/57; PULSE 92; RESP 16; TEMP 36.8; O2SAT 97
[2025-07-31] MEDS: Fluticasone/Vilanterol 100/25 BLST.W.DEV 1 PUFF INHALE (09:06)
[2025-07-31] MEDS: Nicotine 21 MG PATCH.TD24 TRANSDERMA (10:47)
[2025-07-31] MEDS: Albuterol Sulfate 90 MCG 8 GM INHALER 2 PUFF INHALE (10:54)
[2025-07-31 16:48] VITALS: BP 135/89
[2025-07-31 20:00] VITALS: BP 117/58; PULSE 100; RESP 16; TEMP 36; O2SAT 98
[2025-08-01] MEDS: Albuterol Sulfate 90 MCG 8 GM INHALER 2 PUFF INHALE (07:58)
[2025-08-01] MEDS: Nicotine 21 MG PATCH.TD24 TRANSDERMA ×2 (08:24→10:50)
[2025-08-01] MEDS: Fluticasone/Vilanterol 100/25 BLST.W.DEV 1 PUFF INHALE (08:25)
[2025-08-01 08:28] VITALS: BP 104/60; PULSE 87; RESP 18; TEMP 36.6; O2SAT 97
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
--- NOTE | 2025-08-01 11:56 | PC.NURSE ---
Ramy engages easily. Reports feeling ready for discharge, states it was helpful to be here. Denies depression or sadness. Denies SI/HI plan or intent. Denies perceptual disturbances, denies A/V hallucinations. No overt psychosis or expressed delusions. Endorses feeling anxious. All discharge paperwork reviewed with patient, reports understanding. Discharge medications reviewed with patient, reports understanding. Follow up instruction reviewed with patient, reports understanding. Information provided to patient regarding obtaining PCP through [facility]. Crisis numbers provided to patient, resource booklet provided to patient. All belongings taken with patient.
== END 2025-08-01 11:38 | disposition home or self-care (01) | DRG 754 ==
LOC: HO.ED 07-27 07:12 → HO.PADLT16 07-27 14:10
PROVIDERS: Nurse Practitioner Psychiatric/Mental Health; Admitting Provider Registered Nurse; Emergency Provider Emergency Medicine; Responsible Provider Registered Nurse; Visit Provider Psychiatry & Neurology Psychiatry
DX: F32.9 Major depressive disorder, single episode, unspecified (principal); F17.210 Nicotine dependence, cigarettes, uncomplicated; F43.10 Post-traumatic stress disorder, unspecified; J45.909 Unspecified asthma, uncomplicated; Z71.6 Tobacco abuse counseling; Z79.899 Other long term (current) drug therapy
CPT/HCPCS: 36415; 73130; 80053; 80061; 80307; 81001; 83036; 84443; 85025; 93005; 94640; 99285; S9485

== ENCOUNTER → 2025-07-26 17:00 | Outpatient (BNV) | payer MEDICAID, SELFPAY | PROVIDERS: Emergency Provider Emergency Medicine; Visit Provider Radiology Diagnostic Radiology | DX: Z04.3 Encounter for examination and observation following other accident (principal) | CPT/HCPCS: 73130 ==

== ENCOUNTER → 2025-07-27 11:30 | Outpatient (BNV) | payer OTHER, SELFPAY | PROVIDERS: Admitting Provider Registered Nurse; Emergency Provider Emergency Medicine; Visit Provider Internal Medicine | DX: Z13.6 Encounter for screening for cardiovascular disorders (principal) | CPT/HCPCS: 93010 ==

== ENCOUNTER → 2025-07-27 13:50 | Outpatient (BNV) | payer OTHER, SELFPAY | PROVIDERS: Admitting Provider Registered Nurse; Emergency Provider Emergency Medicine; Responsible Provider Registered Nurse; Visit Provider Nurse Practitioner Psychiatric/Mental Health | DX: F32.2 Major depressive disorder, single episode, severe without psychotic features (principal); F43.11 Post-traumatic stress disorder, acute | CPT/HCPCS: 99231; 99232 ==

== ENCOUNTER → 2025-07-27 13:50 | Outpatient (BNV) | payer OTHER, SELFPAY | PROVIDERS: Admitting Provider Registered Nurse; Emergency Provider Emergency Medicine; Responsible Provider Registered Nurse; Visit Provider Nurse Practitioner Family | DX: J45.909 Unspecified asthma, uncomplicated (principal) | CPT/HCPCS: 99221 ==